=== PATIENT | male | born 1980 | race African-American/Black ===

== ENCOUNTER 2016-10-25 23:30 | Emergency (ER) | payer SELFPAY ==
[~2016-10-25] VITALS: Ht 172.7 cm; Wt 70.5 kg
[2016-10-26] MEDS ORDERED: SILVER SULFADIAZINE 1% 25 GM CREAM TP ONE (01:45)
[2016-10-26] MEDS ORDERED: PERTUSS(ACELL),DIPH,TET VAC/PF 0.5 ML VIAL IM ONE (01:45)
[2016-10-26] MEDS ORDERED: HYDROCODONE/ACETAMINOPHEN 5-325 MG TABLET PO ONE (01:45)
[2016-10-26 02:28] VITALS: BP 121/70
== END 2016-10-26 02:30 | disposition home or self-care (01) ==
LOC: EMS 23:33
DX: T22.211A Burn of second degree of right forearm, initial encounter (principal); T31.0 Burns involving less than 10% of body surface; F17.210 Nicotine dependence, cigarettes, uncomplicated; X11.8XXA Contact with other hot tap-water, initial encounter; Y93.89 Activity, other specified; Y99.8 Other external cause status; Y92.89 Other specified places as the place of occurrence of the external cause
CPT/HCPCS: 16020; 90471; 90715; 99285; 99406; Z7610